=== PATIENT | female | born 1955 | race Caucasian/White ===

== ENCOUNTER 2018-09-12 11:57 | Day surgery (SDC) | payer MEDICARE, OTHER ==
[2018-09-12] MEDS ORDERED: PROPOFOL 20 ML (14:50)
[2018-09-12] MEDS ORDERED: FENTAnyl 50 MCG/ML VIAL (14:50)
== END 2018-09-12 15:47 | disposition home or self-care (01) ==
LOC: GIL 11:57
DX: Z12.11 Encounter for screening for malignant neoplasm of colon (principal); K64.8 Other hemorrhoids
CPT/HCPCS: G0121